=== PATIENT | male | born 1950 | race Asian ===

== ENCOUNTER 2018-01-14 12:00 | Day surgery (SDC) | payer MEDICARE, OTHER ==
[2018-01-14] MEDS ORDERED: PROPOFOL 40 ML (14:04)
[2018-01-14] MEDS ORDERED: LIDOCAINE 2% (SDV) 5 ML INJ (14:04)
[2018-01-14] MEDS ORDERED: LABETALOL HCL 20MG INJ (14:31)
== END 2018-01-14 19:02 | disposition home or self-care (01) ==
LOC: GIL 12:00
DX: Z12.11 Encounter for screening for malignant neoplasm of colon (principal); K29.50 Unspecified chronic gastritis without bleeding; B37.81 Candidal esophagitis; D12.2 Benign neoplasm of ascending colon; D12.3 Benign neoplasm of transverse colon; I25.10 Atherosclerotic heart disease of native coronary artery without angina pectoris; J45.909 Unspecified asthma, uncomplicated; Z95.1 Presence of aortocoronary bypass graft; H54.8 Legal blindness, as defined in USA
CPT/HCPCS: 43239; 82962; 88305; 88312; 88313